=== PATIENT | male | born 1950 | race Caucasian/White ===

== ENCOUNTER 2021-09-27 13:32 | Emergency (ER) | payer OTHER ==
--- OUTSIDE RECORDS SUMMARY | 2021-09-27 13:34 | XMS REPORT | Continuity of Care Document ---
:1950 Author Organization [facility] Address [address] [place] [address] Dr. Sanders [address] [place] [address] Care Team Providers Name Role Phone [facility] Attending Clinician Unavailable [facility] Attending Clinician Unavailable Problems This patient has no known problems. Allergies, Adverse Reactions, Alerts This patient has no known allergies or adverse reactions. Medications This patient has no known medications. Procedures This patient has no known procedures. Encounters Start End Encounter Admission Attending Care Care Encounter Source Date/Time Date/Time Type Type Clinicians Facility Department ID 2021-09-19 2021-09-19 Outpatient [facility], [facility] [id number] [place] 00:00:00 00:00:00 CHAD [address] 2021-09-12 2021-09-12 Outpatient [facility], [facility] [id number] [place] 00:00:00 00:00:00 CHAD [address] 2021-09-05 2021-09-05 Outpatient [facility], [facility] [id number] [place] 00:00:00 00:00:00 CHAD [address] 2021-08-22 2021-08-22 Outpatient [facility], [facility] [id number] [place] 00:00:00 00:00:00 CHAD [address] 2021-08-22 2021-08-22 Outpatient [facility], [facility] [id number] [place] 00:00:00 00:00:00 CHAD [address] 2020-09-16 2020-09-16 Outpatient SI[facility], [facility] [id number] [place] 00:00:00 00:00:[address] 2020-09-16 2020-09-16 Outpatient SI[facility], [facility] [id number] [place] 00:00:00 00:00:[address] 2020-05-04 2020-05-04 Outpatient [facility], [facility] [id number] [place] 00:00:00 00:00:00 CHAD [address] 2020-05-04 2020-05-04 Outpatient [facility], [facility] [id number] [place] 00:00:00 00:00:00 [address] [address] Results This patient has no known results.
[2021-09-27] MEDS ORDERED: ASPIRIN 81 MG CHEWABLE TABLET ONE (14:13)
[2021-09-27 14:28] LABS: Protime INR 1.02
[2021-09-27 14:36] LABS: Absolute Lymphocytes (CBC) 1.7 K/uL (0.7-4.9); Basophils % 0.5 % (0-1.3); Hematocrit 46.2 % (39.6-49.0); Lymphocytes % 35.9 % (15.3-44.8); MPV 7.6 fL (7.6-11.3); RBC Red Blood Cell Count 5.05 M/uL (4.33-5.43)
[2021-09-27 14:49] LABS: Bilirubin Total 0.9 mg/dL (0.2-1.0); Potassium 4.7 mmol/L (3.5-5.1)
[2021-09-27 14:50] LABS: Bilirubin Direct 0.2 mg/dL (0-0.2); Magnesium 2.3 mg/dL (1.8-2.4); Protein, Total 7.6 g/dL (6.4-8.2); Troponin (Emerg Dept Use Only) 0.13 ng/mL (0.0-0.045)
--- NOTE | 2021-09-27 15:06 | RAD REPORT ---
EXAM DESCRIPTION: RAD - Chest Single View - 09/27/2021 2:34 pm CLINICAL HISTORY: CHEST PAIN COMPARISON: None TECHNIQUE: AP portable chest image was obtained 09/27/2021 2:34 pm . FINDINGS: Lung volumes are low. No acute lung parenchymal process. No failure or volume overload see n. Heart and vasculature are normal. No measurable pleural effusion and no pneumothorax. No acute bon y abnormality seen. No acute aortic findings suspected. IMPRESSION: No acute cardiopulmonary process.
--- NOTE | 2021-09-27 15:34 | ER ---
Nurse's Notes [facility] Name: Ash Edwards Age: 71 yrs Sex: Male : 1950 Arrival Date: 09/27/2021 Time: 13:34 Bed 2 Private MD: Diagnosis: Unstable angina;Chest pain, unspecified;Essential (primary) hypertension;Obesity, unspecified;Non ST elevation CA Presentation: 09/27 13:38 Chief complaint: Patient states: Chest pain beginning on and off last night, pain has ld1 been radiating in my left chest and down my left arm. I just had an episode when I walked in the hospital, I began having chills and sweats. Coronavirus screen: At this time, the client does not indicate any symptoms associated with coronavirus-19. Ebola Screen: No symptoms or risks identified at this time. Initial Sepsis Screen: Does the patient meet any 2 criteria? No. Patient's initial sepsis screen is negative. Does the patient have a suspected source of infection? No. Patient's initial sepsis screen is negative. Risk Assessment: Do you want to hurt yourself or someone else? Patient reports no desire to harm self or others. Onset of symptoms was September 27, 2021. 13:38 Method Of Arrival: Ambulatory ld1 13:38 Acuity: NGOC 3 ld1 Triage Assessment: 13:39 General: Appears in no apparent distress. comfortable, Behavior is cooperative, ld1 appropriate for age, anxious. Pain: Complains of pain in anterior aspect of left upper chest and left breast Pain radiates to left arm Pain currently is 3 out of 10 on a pain scale. Quality of pain is described as dull, tingling, Pain began 1 day ago. Is intermittent. EENT: No signs and/or symptoms were reported regarding the EENT system. Neuro: Level of Consciousness is awake, alert, obeys commands, Oriented to person, place, time, situation, Appropriate for age. Cardiovascular: Capillary refill < 3 seconds Patient's skin is warm and dry. Respiratory: Airway is patent Respiratory effort is even, unlabored, Respiratory pattern is regular, symmetrical. GI: Abdomen is flat, non-distended. : No signs and/or symptoms were reported regarding the genitourinary system. Derm: Skin is clammy, diaphoretic. Musculoskeletal: Reports pain in chest. Historical: - Allergies: 13:39 No Known Allergies; ld1 - Home Meds: 14:43 irbesartan 300 mg oral tab 1 tab nightly [Active]; carvedilol 6.25 mg oral tab 1 tab 2 jd3 times per day [Active]; atorvastatin 80 mg oral tab 1 tab daily [Active]; aspirin 81 mg Oral chew 1 tab twice a day [Active]; - PMHx: 13:39 Hypertensive disorder; Arthritis; ld1 - Immunization history:: Adult Immunizations up to date, Client reports receiving the 2nd dose of the Covid vaccine. - Social history:: Smoking status: Patient denies any tobacco usage or history of. Patient/guardian denies using alcohol. - Family history:: not pertinent. Screenin:11 Abuse screen: Denies threats or abuse. Nutritional screening: No deficits noted. jd3 Tuberculosis screening: No symptoms or risk factors identified. Fall Risk IV access (20 points). Ambulatory Aid- None/Bed Rest/Nurse Assist (0 pts). Gait- Normal/Bed Rest/Wheelchair (0 pts) Mental Status- Oriented to own ability (0 pts). Total Egan Fall Scale indicates No Risk (0-24 pts). Assessment: 14:46 General: Appears in no apparent distress. comfortable, well groomed, Behavior is calm, jd3 cooperative, appropriate for age. Pain: Complains of pain in chest Pain radiates to left shoulder Quality of pain is described as pressure, tingling. Neuro: Level of Consciousness is awake, alert, obeys commands, Oriented to person, place, time, situation. Cardiovascular: Reports chest pain, Capillary refill < 3 seconds Patient's skin is warm and dry. Rhythm is regular. Respiratory: Airway is patent Respiratory effort is even, unlabored, Respiratory pattern is regular, symmetrical, Denies cough, shortness of breath. GI: No signs and/or symptoms were reported involving the gastrointestinal system. : No signs and/or symptoms were reported regarding the genitourinary system. EENT: No signs and/or symptoms were reported regarding the EENT system. Derm: Skin is intact, Skin is moist, Skin is normal, Skin temperature is warm. Musculoskeletal: Circulation, motion, and sensation intact. Range of motion: intact in all extremities. 16:25 Reassessment: Patient and/or family updated on plan of care and expected duration. Pain al4 level reassessed. Patient is alert, oriented x 3, equal unlabored respirations, skin warm/dry/pink. 17:12 Reassessment: Patient and/or family updated on plan of care and expected duration. Pain jd3 level reassessed. Patient is alert, oriented x 3, equal unlabored respirations, skin warm/dry/pink. report given to Cem PULLIAM at [facility]. pt signed transfer paperwork. awaiting EMS for transfer. 17:38 Reassessment: Patient appears in no apparent distress at this time. Patient and/or jd3 family updated on plan of care and expected duration. Pain level reassessed. Patient is alert, oriented x 3, equal unlabored respirations, skin warm/dry/pink. report given to EMS. Vital Signs: 13:38 BP 171 / 115; Pulse 88; Resp 18; Temp 97.4(TE); Pulse Ox 100% ; Weight 120.2 kg; Height ld1 6 ft. 0 in. (182.88 cm); Pain 3/10; 14:30 BP 141 / 100; Pulse 79; Resp 17 S; Pulse Ox 96% on R/A; jd3 15:30 BP 158 / 99; Pulse 89; Resp 18; Pulse Ox 98% on R/A; al4 16:25 Pulse 81; Resp 18; Pulse Ox 99% ; al4 17:13 BP 160 / 95; Pulse 81; Resp 17 S; Pulse Ox 97% on R/A; jd3 13:38 Body Mass Index 35.94 (120.20 kg, 182.88 cm) ld1 ED Course: 13:34 Patient arrived in ED. am2 13:39 Triage completed. ld1 13:39 Arm band placed on left wrist. ld1 13:49 Kilo Peña PA is PHCP. cp 13:49 Kilo Turner MD is Attending Physician. cp 13:53 Juan F Easton RN is Primary Nurse. jd3 14:11 Inserted saline lock: 20 gauge in right antecubital area, using aseptic technique. jd3 Blood collected. Patient maintains SpO2 saturation greater than 95% on room air. 14:12 Patient has correct armband on for positive identification. Bed in low position. Call jd3 light in reach. Side rails up X 1. monitor worker on. Pulse ox on. NIBP on. 14:34 XRAY Chest (1 view) In Process Unspecified. EDMS 16:22 Inserted saline lock: 20 gauge in left antecubital area, using aseptic technique. al4 16:32 initiated transfer to [facility], pt accepted in transfer by dr Ness, admin bd approval given by Frances Aguirre. 17:39 No provider procedures requiring assistance completed. Patient transferred, IV remains jd3 in place. Administered Medications: 14:18 Drug: Aspirin Chewable Tablet 252 mg {Note: given 3 81mg ASA per verbal order by Dr. nayeli Turner..} Route: PO; 15:58 Drug: PlaVIX (clopidogrel) 300 mg Route: PO; jd3 16:00 Drug: Lopressor (metoprolol) 2.5 mg Route: IVP; Site: right antecubital; jd3 16:03 Drug: Lopressor (metoprolol TARTRATE) 50 mg Route: PO; jd3 16:05 Drug: Lopressor (metoprolol) 2.5 mg Route: IVP; Site: right antecubital; jd3 16:06 Drug: Pepcid (famotidine) 20 mg Route: IVP; Site: right antecubital; jd3 16:12 Drug: Heparin (CA-Bolus No thrombolytic) - HEParin 60 units/kg {Co-Signature: al4 jd3 (Fausto Porter).} Route: IVP; Site: right antecubital; 16:14 Drug: Heparin (CA Drip) 12 units/kg/hr - (HEParin 01755 units, D5W 500 ml) jd3 {Co-Signature: al4 (Fausto Porter).} Route: IV; Rate: calculated rate; Site: right antecubital; Outcome: 15:33 ER care complete, transfer ordered by MD. siddiqui 17:39 Transferred by ground EMS to [facility], [facility], Transfer form completed. jd3 X-rays sent w/ patient. 17:39 Condition: stable 17:39 Instructed on the need for transfer. 17:39 Patient left the ED. jd3 Signatures: Dispatcher [employer] EDMS Zoraida Alcantar Corey, MD MD cha Page, Corey, PA PA cp Moreno, Amanda am2 Davies, Juan F, RN RN jd3 Coby Santos RN RN ld1 Fausto Porter4 Fausto [email or web address] Corrections: (The following items were deleted from the chart) 14:46 13:39 Home Meds: amlodipine oral; ld1 jd3 17:39 17:38 Reassessment: Patient appears in no apparent distress at this time. Patient jd3 and/or family updated on plan of care and expected duration. Pain level reassessed. Patient is alert, oriented x 3, equal unlabored respirations, skin warm/dry/pink. jd3
--- NOTE | 2021-09-27 15:34 | EDPHYS ---
Physician Documentation [facility] Name: Ash Edwards Age: 71 yrs Sex: Male : 1950 Arrival Date: 09/27/2021 Time: 13:34 Bed 2 Private MD: ED Physician Kilo Turner HPI: 09/27 15:24 This 71 yrs old Male presents to ER via Ambulatory with complaints of Chest chen Pain, Numbness Of Arm - left. 15:24 The patient or guardian reports chest pain that is located primarily in the substernal chen area. Onset: just prior to arrival, this morning. The pain radiates to the left arm. Associated signs and symptoms: The patient has no apparent associated signs or symptoms. The chest pain is described as a heaviness, a pressure. Duration: The patient or guardian reports multiple episodes, that are intermittent. Modifying factors: The symptoms are alleviated by nothing. the symptoms are aggravated by nothing. Severity of pain: At its worst the pain was moderate in the emergency department the pain has resolved and did so just prior to arrival. The patient has experienced similar episodes in the past, several times. Historical: - Allergies: 13:39 No Known Allergies; ld1 - Home Meds: 14:43 irbesartan 300 mg oral tab 1 tab nightly [Active]; carvedilol 6.25 mg oral tab 1 tab 2 jd3 times per day [Active]; atorvastatin 80 mg oral tab 1 tab daily [Active]; aspirin 81 mg Oral chew 1 tab twice a day [Active]; - PMHx: 13:39 Hypertensive disorder; Arthritis; ld1 - Immunization history:: Adult Immunizations up to date, Client reports receiving the 2nd dose of the Covid vaccine. - Social history:: Smoking status: Patient denies any tobacco usage or history of. Patient/guardian denies using alcohol. - Family history:: not pertinent. ROS: 15:24 Constitutional: Negative for fever, chills, and weight loss, Eyes: Negative for injury, chen pain, redness, and discharge, ENT: Negative for injury, pain, and discharge, Neck: Negative for injury, pain, and swelling, Respiratory: Negative for shortness of breath, cough, wheezing, and pleuritic chest pain, Abdomen/GI: Negative for abdominal pain, nausea, vomiting, diarrhea, and constipation, Back: Negative for injury and pain, : Negative for injury, bleeding, discharge, and swelling, MS/Extremity: Negative for injury and deformity, Skin: Negative for injury, rash, and discoloration, Neuro: Negative for headache, weakness, numbness, tingling, and seizure, Psych: Negative for depression, anxiety, suicide ideation, homicidal ideation, and hallucinations, Allergy/Immunology: Negative for hives, rash, and allergies, Endocrine: Negative for neck swelling, polydipsia, polyuria, polyphagia, and marked weight changes, Hematologic/Lymphatic: Negative for swollen nodes, abnormal bleeding, and unusual bruising. 15:24 Cardiovascular: Positive for chest pain. Exam: 15:24 Constitutional: This is a well developed, well nourished patient who is awake, alert, chen and in no acute distress. Head/Face: Normocephalic, atraumatic. Eyes: Pupils equal round and reactive to light, extra-ocular motions intact. Lids and lashes normal. Conjunctiva and sclera are non-icteric and not injected. Cornea within normal limits. Periorbital areas with no swelling, redness, or edema. ENT: Nares patent. No nasal discharge, no septal abnormalities noted. Tympanic membranes are normal and external auditory canals are clear. Oropharynx with no redness, swelling, or masses, exudates, or evidence of obstruction, uvula midline. Mucous membranes moist. Neck: Trachea midline, no thyromegaly or masses palpated, and no cervical lymphadenopathy. Supple, full range of motion without nuchal rigidity, or vertebral point tenderness. No Meningismus. Chest/axilla: Normal chest wall appearance and motion. Nontender with no deformity. No lesions are appreciated. Cardiovascular: Regular rate and rhythm with a normal S1 and S2. No gallops, murmurs, or rubs. Normal PMI, no JVD. No pulse deficits. Respiratory: Lungs have equal breath sounds bilaterally, clear to auscultation and percussion. No rales, rhonchi or wheezes noted. No increased work of breathing, no retractions or nasal flaring. Abdomen/GI: Soft, non-tender, with normal bowel sounds. No distension or tympany. No guarding or rebound. No evidence of tenderness throughout. Back: No spinal tenderness. No costovertebral tenderness. Full range of motion. Male : Normal genitalia with no discharge or lesions. Skin: Warm, dry with normal turgor. Normal color with no rashes, no lesions, and no evidence of cellulitis. MS/ Extremity: Pulses equal, no cyanosis. Neurovascular intact. Full, normal range of motion. Neuro: Awake and alert, GCS 15, oriented to person, place, time, and situation. Cranial nerves II-XII grossly intact. Motor strength 5/5 in all extremities. Sensory grossly intact. Cerebellar exam normal. Normal gait. Psych: Awake, alert, with orientation to person, place and time. Behavior, mood, and affect are within normal limits. Vital Signs: 13:38 BP 171 / 115; Pulse 88; Resp 18; Temp 97.4(TE); Pulse Ox 100% ; Weight 120.2 kg; Height ld1 6 ft. 0 in. (182.88 cm); Pain 3/10; 14:30 BP 141 / 100; Pulse 79; Resp 17 S; Pulse Ox 96% on R/A; jd3 15:30 BP 158 / 99; Pulse 89; Resp 18; Pulse Ox 98% on R/A; al4 16:25 Pulse 81; Resp 18; Pulse Ox 99% ; al4 17:13 BP 160 / 95; Pulse 81; Resp 17 S; Pulse Ox 97% on R/A; jd3 13:38 Body Mass Index 35.94 (120.20 kg, 182.88 cm) ld1 MDM: 13:50 Patient medically screened. chen 15:25 Differential diagnosis: abnormal EKG, acute pericarditis, anxiety, chest wall pain, chen costochondritis, hiatal hernia, pancreatitis, peptic ulcer disease, pleurisy, pulmonary embolus, stable angina, unstable angina. HEART Score: History: Highly Suspicious (2), ECG: Normal (0), Age: > or = 65 years (2), Risk Factors: > or = 3 Risk factors for atherosclerotic disease (2), [Hypercholesterolemia] [Hypertension] [+ Family HX] [Obesity] Troponin: < or = 1 x Normal Limit (0). The patient was given aspirin in the Emergency Department. The patient's deep vein thrombosis risk score was calculated as follows: Total Score: 0. This patient was found to be at low risk for a deep vein thrombosis by using the Well's assessment criteria. The patient's pulmonary embolism risk score was calculated as follows: Total Score: 0-2 points. This patient was found to be at low risk for a pulmonary embolism by using the Well's assessment criteria. AURELIO Risk Score: 1 - patient's age is greater or equal to 65 years, 1 - Three or more CAD risk factors, 1- Known CAD, 1 - ASA use in past 7 days, 1 - Recent [<24hrs] Severe Angina, 1 - Elevated Cardiac Markers, TOTAL SCORE = 6. Data reviewed: vital signs, nurses notes, lab test result(s), EKG, radiologic studies, plain films. Data interpreted: quality assurance monitor: rate is 79 beats/min, rhythm is regular, Pulse oximetry: on room air is 79 %. Test interpretation: by ED physician or midlevel provider: ECG, plain radiologic studies. Counseling: I had a detailed discussion with the patient and/or guardian regarding: the historical points, exam findings, and any diagnostic results supporting the discharge/admit diagnosis, lab results, radiology results, the need to transfer to another facility, for higher level of care, [facility] does not immediately have the required specialist. 09/27 13:43 Order name: Basic Metabolic Panel; Complete Time: 15:14 09/27 13:43 Order name: CBC with Diff; Complete Time: 15:14 09/27 13:43 Order name: LFT's; Complete Time: 15:14 09/27 13:43 Order name: Magnesium; Complete Time: 15:14 09/27 13:43 Order name: NT PRO-BNP; Complete Time: 15:14 09/27 13:43 Order name: PT-INR; Complete Time: 15:14 09/27 13:43 Order name: Troponin (emerg Dept Use Only); Complete Time: 15:14 09/27 13:43 Order name: XRAY Chest (1 view); Complete Time: 15:14 09/27 13:51 Order name: Lipase; Complete Time: 15:24 [facility] 09/27 13:51 Order name: SARS-COV-2 RT PCR (Document "Date of Onset" if Symptomatic) [facility] 09/27 13:43 Order name: EKG; Complete Time: 13:44 09/27 13:43 Order name: Cardiac monitoring; Complete Time: 13:53 09/27 13:43 Order name: EKG - Nurse/Tech; Complete Time: 13:43 ld1 09/27 13:43 Order name: IV Saline Lock; Complete Time: 14:11 ld09/27 13:43 Order name: Labs collected and sent; Complete Time: 14:11 ld1 09/27 13:43 Order name: O2 Per Protocol; Complete Time: 13:53 ld1 09/27 13:43 Order name: O2 Sat Monitoring; Complete Time: 13:53 ld1 Administered Medications: 14:18 Drug: Aspirin Chewable Tablet 252 mg {Note: given 3 81mg ASA per verbal order by Dr. nayeli Turner..} Route: PO; 15:58 Drug: PlaVIX (clopidogrel) 300 mg Route: PO; jd3 16:00 Drug: Lopressor (metoprolol) 2.5 mg Route: IVP; Site: right antecubital; jd3 16:03 Drug: Lopressor (metoprolol TARTRATE) 50 mg Route: PO; jd3 16:05 Drug: Lopressor (metoprolol) 2.5 mg Route: IVP; Site: right antecubital; jd3 16:06 Drug: Pepcid (famotidine) 20 mg Route: IVP; Site: right antecubital; jd3 16:12 Drug: Heparin (MD-Bolus No thrombolytic) - HEParin 60 units/kg {Co-Signature: al4 nayeli (Fausto Porter).} Route: IVP; Site: right antecubital; 16:14 Drug: Heparin (MD Drip) 12 units/kg/hr - (HEParin 60110 units, D5W 500 ml) nayeli {Co-Signature: al4 (Fausto Porter).} Route: IV; Rate: calculated rate; Site: right antecubital; Disposition Summary: 09/27/21 15:33 Transfer Ordered Transfer Location: [facility] chen Reason: Higher level of care chen Condition: Fair chen Problem: new chen Symptoms: have improved chen Accepting Physician: to valentín cortés(09/27/21 17:39) jjordna Diagnosis - Unstable angina chen - Chest pain, unspecified chen - Essential (primary) hypertension chen - Obesity, unspecified chen - Non ST elevation MD chen Forms: - Medication Reconciliation Form chen - SBAR form chen Signatures: Dispatcher [employer] Kilo Aparicio MD MD cha Davies, Jonathon, RN RN jd3 Coby Santos RN RN ld1 Fausto [email or web address] Corrections: (The following items were deleted from the chart) 14:46 13:39 Home Meds: amlodipine oral; ld1 jd3 15:33 15:33 to [facility] chen siddiqui 17:39 15:33 to [facility] jd3
[2021-09-27] MEDS ORDERED: HEPARIN 5000 UNIT/ML 1 ML VIAL ONE (15:39)
[2021-09-27] MEDS ORDERED: METOPROLOL TAR 50 MG TAB ONE (15:40)
[2021-09-27] MEDS ORDERED: FAMOTIDINE 20 MG/2 ML VIAL IV ONE (15:40)
[2021-09-27] MEDS ORDERED: METOPROLOL TARTRATE 5 MG/5 ML INJ IV ONE (15:40)
[2021-09-27] MEDS ORDERED: CLOPIDOGREL 75 MG TABLET ONE (15:40)
[2021-09-27] MEDS ORDERED: HEPARIN/D5W 25,000 UNIT/500 ML BAG IV ONE (15:41)
[2021-09-27 17:48] VITALS: TEMP 97.4
[2021-09-27 17:53] VITALS: BP 160/95; O2SAT 97
--- NOTE | 2021-09-28 16:23 | EKG ---
Test Date: 2021-09-27 Test Time: 13:46:51 Collaborating Supervising Physician: JANY MEASUREMENT RESULTS: Intervals: Rate: 86 OH: 132 QRSD: 104 QT: 354 QTc: 423 [place]: P: 29 OH: 132 QRS: -6 T: 9 INTERPRETIVE STATEMENTS: Normal sinus rhythm Minimal voltage criteria for LVH, may be normal variant Borderline ECG No previous ECG available for comparison Electronically Signed On 09-28-21 16:22:10 [employer]Y EDUCATION DIRECTOR by Baldemar Romano
== END 2021-09-27 17:39 | disposition short-term general hospital (02) ==
LOC: ER 13:32
DX: I21.4 Non-ST elevation (NSTEMI) myocardial infarction (principal); I20.0 Unstable angina; I10 Essential (primary) hypertension; E66.9 Obesity, unspecified; Z68.35 Body mass index [BMI] 35.0-35.9, adult; Z20.822 Contact with and (suspected) exposure to COVID-19
CPT/HCPCS: 93005; 85025; 80048; 36415; 83735; 85610; 80076; 84484; 83690; 83880; 71045; 96375; 96374; 99285; U0003; J1644 ×2